=== PATIENT | female | born 2005 | race Hispanic/Latino ===

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

== ENCOUNTER 2024-03-05 02:23 | Emergency (ER) | payer SELFPAY ==
[~2024-03-05] VITALS: Ht 157.5 cm; Wt 115.2 kg
[2024-03-05] MEDS: ACETAMINOPHEN 500 MG TABLET PO ONE (02:32)
[2024-03-05] MEDS: IBUPROFEN 800 MG TAB PO ONE (02:56)
[2024-03-05 03:10] LABS: COVID19 (SARS ANTIGEN RAPID) PRESUMPTIVE NEGATIVE (NEGATIVE); INFLUENZA TYPE A Negative For Type A (NEGATIVE); INFLUENZA TYPE B Negative For Type B (NEGATIVE)
[2024-03-05 03:11] LABS: RAPID GROUP A STREP positive (NEGATIVE)
[2024-03-05] MEDS ORDERED: CIPR7.5D7 OT (03:33)
[2024-03-05] MEDS ORDERED: AMOX500T2 PO (03:33)
[2024-03-05 03:43] VITALS: TEMP 101.7
[2024-03-05 03:45] VITALS: BP 148/90; PULSE 90; RESP 20; O2SAT 100
== END 2024-03-05 03:52 | disposition home or self-care (01) ==
LOC: EDH 02:23
DX: J02.0 Streptococcal pharyngitis (principal); H60.92 Unspecified otitis externa, left ear; J45.909 Unspecified asthma, uncomplicated; Z20.822 Contact with and (suspected) exposure to COVID-19
CPT/HCPCS: 87426; 87804; 87880